=== PATIENT | female | born 1975 | race African-American/Black ===

== ENCOUNTER 2018-01-19 10:32 | Emergency (ER) | payer MEDICARE, OTHER ==
[~2018-01-19] VITALS: Ht 167.6 cm; Wt 141.5 kg
[~2018-01-19 10:32] MED LIST: AMLO5TAB4 PO; CLIN300C8 PO; CYCL10TA2 PO; DIAZ5TAB4 PO; DULO60CA6 PO; FLUT16SP2 NS; GABA-586 PO; HYDR25TA9 PO; LIDO700A4 TP; NAPR-514 PO; OXYC-328 PO; OXYC10TA45 PO; PROAIR HFA8.5 GM IH; TOPI50TA38 PO
--- NOTE | 2018-01-19 13:29 | RAD ---
EXAM: Lumbar spine, 3 views. HISTORY: Fall. Pain. COMPARISON: 11/11/2015. FINDINGS: 3 views of the lumbar spine are obtained. There is no listhesis. There is degenerative endplate remodeling with disc space narrowing and anterior osteophytosis at L2-L3. There is a chronic anterior superior endplate deformity or limbus vertebrae at L4. There is facet arthropathy primarily the lumbosacral junction. There are laminectomy changes at L2-L4. There are cholecystectomy clips. IMPRESSION: 1. No acute osseous finding. 2. Multilevel degenerative change, primarily at L2-L3. 3. 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 4. Laminectomy changes at L2-L4. Electronically signed by: Telma Hercules MD (01/19/2018 1:26 PM) [facility]
[2018-01-19 13:30] VITALS: BP 178/99
[2018-01-19] MEDS ORDERED: oxyCODONE/APAP 5/325 1 TAB TABLET PO ONE (13:30)
--- NOTE | 2018-01-19 13:50 | PHYS DOC ---
Past Medical History Past Medical History: Arthritis, Asthma, Gallstones, Hypertension, Sinusitis, Other Additional Past Medical Histor: Sleep apnea. Past Surgical History: Cholecystectomy, Other Additional Past Surgical Histo: Sinus surgery,L)ear surgery&"fixed adnoids." Alcohol Use: Occasionally Drug Use: None Adult General Chief Complaint Chief Complaint: MECHANICAL FALL HPI HPI Patient is a 42 year old FEMALE presented to the ER today for evaluation of lower back pain after she fell 4 days ago. Patient denied any other injury, no bowel or bladder incontinence, no fever, no headache, no neck pain, no abdominal pain. Review of Systems Review of Systems Constitutional: Denies fever or chills [] Eyes: Denies change in visual acuity, redness, or eye pain [] HENT: Denies nasal congestion or sore throat [] Respiratory: Denies cough or shortness of breath [] Cardiovascular: No additional information not addressed in HPI [] GI: Denies abdominal pain, nausea, vomiting, bloody stools or diarrhea [] : Denies dysuria or hematuria [] Musculoskeletal:Positive for lower back pain. Integument: Denies rash or skin lesions [] Neurologic: Denies headache, focal weakness or sensory changes [] Endocrine: Denies polyuria or polydipsia [] All other systems were reviewed and found to be within normal limits, except as documented in this note. Current Medications Current Medications Current Medications Medications (Trade) Dose Ordered Sig/Maciel Start Time Stop Time Status Last Admin Dose Admin Oxycodone/ Acetaminophen (Percocet 5/325) 1 tab 1X ONCE 01/19/18 13:30 01/19/18 13:31 DC 01/19/18 13:20 1 TAB Allergies Allergies Allergies Coded Allergies Type Severity Reaction Last Updated Verified clindamycin Allergy Intermediate Itching 11/11/15 Yes hydromorphone Allergy Intermediate Itching 01/19/18 Yes Physical Exam Physical Exam Constitutional: Well developed, well nourished, no acute distress, non-toxic appearance. [] HENT: Normocephalic, atraumatic, nose normal. [] Eyes: PERRLA, EOMI, conjunctiva normal, no discharge. [] Neck: Normal range of motion, no tenderness, supple, no stridor. [] Cardiovascular:Heart rate regular rhythm, no murmur [] Lungs & Thorax: Bilateral breath sounds clear to auscultation [] Abdomen: Bowel sounds normal, soft, no tenderness, no masses, no pulsatile masses. [] Skin: Warm, dry, no erythema, no rash. [] Back: No tenderness, no CVA tenderness. [] Extremities: No tenderness, no cyanosis, no clubbing, ROM intact, no edema. [] Neurologic: Alert and oriented X 3, normal motor function, normal sensory function, no focal deficits noted. [] Psychologic: Affect normal, judgement normal, mood normal. [] Current Patient Data Vital Signs Vital Signs Date Time Temp Pulse Resp B/P (MAP) Pulse Ox O2 Delivery O2 Flow Rate FiO2 01/19/18 13:30 84 94 01/19/18 11:35 98.5 20 171/96 (121) Room Air 98.5 EKG EKG [] Radiology/Procedures Radiology/Procedures [][facility] [address] [place] [address] IMAGING REPORT Signed PATIENT: ALICIA WARNER ACCOUNT: [id number] : 1975 LOCATION: ER AGE: 42 SEX: F EXAM STATUS: REG ER ORD. PHYSICIAN: AVA MAYORGA DO REASON: FELL 3 DAYS AGO, LOWER BACK PAIN PROCEDURE: LUMBAR SPINE 2-3V EXAM: Lumbar spine, 3 views. HISTORY: Fall. Pain. COMPARISON: 11/11/2015. FINDINGS: 3 views of the lumbar spine are obtained. There is no listhesis. There is degenerative endplate remodeling with disc space narrowing and anterior osteophytosis at L2-L3. There is a chronic anterior superior endplate deformity or limbus vertebrae at L4. There is facet arthropathy primarily the lumbosacral junction. There are laminectomy changes at L2-L4. There are cholecystectomy clips. IMPRESSION: 1. No acute osseous finding. 2. Multilevel degenerative change, primarily at L2-L3. 3. 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 4. Laminectomy changes at L2-L4. Electronically signed by: Telma Hercules MD (01/19/2018 1:26 PM) [place] [id number] DICTATED and SIGNED BY: TELMA HERCULES MD DATE: 01/19/18 1324 Course & Med Decision Making Course & Med Decision Making Pertinent Labs and Imaging studies reviewed. (See chart for details) [] Dragon Disclaimer Dragon Disclaimer This electronic medical record was generated, in whole or in part, using a voice recognition dictation system. Departure Departure Impression: Primary Impression: Low back pain Disposition: HOME, SELF-CARE Condition: STABLE Referrals: NO PCP (PCP) follow up with your doctor for further evaluation if you continue to have pain. Patient Instructions: Back Pain, Adult MAYORGAAVA DO Jan 19, 2018 13:50
== END 2018-01-19 14:05 | disposition home or self-care (01) ==
LOC: ER 10:32
DX: M54.5 Low back pain (principal); M19.90 Unspecified osteoarthritis, unspecified site; J45.909 Unspecified asthma, uncomplicated; I10 Essential (primary) hypertension; Z90.49 Acquired absence of other specified parts of digestive tract; Z88.1 Allergy status to other antibiotic agents; Z88.5 Allergy status to narcotic agent
CPT/HCPCS: 72100; 99284

== ENCOUNTER 2019-02-22 11:57 | Emergency (ER) | payer OTHER, MEDICAID ==
[~2019-02-22] VITALS: Ht 167.6 cm; Wt 147.9 kg
[~2019-02-22 11:57] MED LIST changes: +ALBU2.5V8 IH; -GABA-586 PO; +GABA300C18 PO; +HYDR-2145 PO; -HYDR25TA9 PO; -OXYC-328 PO; -OXYC10TA45 PO; +OXYC10TA46 PO; +OXYC1TAB22 PO; -PROAIR HFA8.5 GM IH
[2019-02-22 12:13] VITALS: BP 177/82
[2019-02-22] MEDS ORDERED: predniSONE 10 MG TABLET PO ONE (12:15)
[2019-02-22] MEDS ORDERED: IBUPROFEN 200 MG TABLET. PO ONE (12:15)
[2019-02-22] MEDS ORDERED: ALBUTEROL SULFATE 2.5 MG/3 ML NEBU. NEB ONE (12:15)
--- NOTE | 2019-02-22 12:20 | PHYS DOC ---
Past Medical History Past Medical History: Arthritis, Asthma, Gallstones, Hypertension, Sinusitis, Other Additional Past Medical Histor: Sleep apnea. (ROMERO BAER APRN) Past Surgical History: Cholecystectomy, Other Additional Past Surgical Histo: Sinus surgery,L)ear surgery&"fixed adnoids." (ROMERO BAER APRN) Alcohol Use: Occasionally Drug Use: None (ROMERO BAER APRN) Attending Signature I have participated in the care of this patient and I have reviewed and agree with all pertinent clinical information above including history, exam, and recommendations. (ROSEANNA MADSEN MD) Adult General Chief Complaint Chief Complaint: COUGH HPI HPI Patient is a 43 year old female who presents with cough with yellow-green mucus production, shortness of breath, sinus congestion, body aches, headache 1.5 weeks. Patient rates her overall pain a 7/10. (ROMERO BAER APRN) Review of Systems Review of Systems Constitutional: Denies fever or chills [] Eyes: Denies change in visual acuity, redness, or eye pain [] HENT: nasal congestion or sore throat [] Respiratory: cough or shortness of breath [] Cardiovascular: Left under the breast sharp pain and mid chest All other systems were reviewed and found to be within normal limits, except as documented in this note. (ROMERO BAER APRN) Current Medications Current Medications Current Medications Medications (Trade) Dose Ordered Sig/Maciel Start Time Stop Time Status Last Admin Dose Admin Albuterol Sulfate (Ventolin Neb Soln) 2.5 mg 1X ONCE 02/22/19 12:15 02/22/19 12:16 DC Ibuprofen (Motrin) 600 mg 1X ONCE 02/22/19 12:15 02/22/19 12:16 DC 02/22/19 12:29 600 MG Prednisone (Prednisone) 50 mg 1X ONCE 02/22/19 12:15 02/22/19 12:16 DC 02/22/19 12:29 50 MG (ROSEANNA MADSEN MD) Allergies Allergies Allergies Coded Allergies Type Severity Reaction Last Updated Verified clindamycin Allergy Intermediate Itching 11/11/15 Yes hydromorphone Allergy Intermediate Itching 01/19/18 Yes (ROSEANNA MADSEN MD) Physical Exam Physical Exam Constitutional: Well developed, well nourished, no acute distress, non-toxic appearance. [] HENT: Normocephalic, atraumatic, bilateral external ears normal, oropharynx moist, no oral exudates, nose normal. Post nasal drip. Tender sinuses. [] Eyes: PERRLA, EOMI, conjunctiva normal, no discharge. [] Neck: Normal range of motion, no tenderness, supple, no stridor. [] Cardiovascular:Heart rate regular rhythm, no murmur [] Lungs & Thorax: Bilateral breath sounds clear to auscultation [] Skin: Warm, dry, no erythema, no rash. [] Neurologic: Alert and oriented X 3, normal motor function, normal sensory function, no focal deficits noted. [] Psychologic: Affect normal, judgement normal, mood normal. [] (ROMERO BAER APRN) Current Patient Data Vital Signs Vital Signs Date Time Temp Pulse Resp B/P (MAP) Pulse Ox O2 Delivery O2 Flow Rate FiO2 02/22/19 12:26 96 Room Air 02/22/19 12:13 99.0 99 16 177/82 (113) 99.0 (ROSEANNA MADSEN MD) Lab Values Laboratory Tests Test 02/22/19 12:10 Influenza Type A Antigen Negative (NEGATIVE) Influenza Type B Antigen Negative (NEGATIVE) (ROSEANNA MADSEN MD) Lab Values Laboratory Tests Test 02/22/19 12:10 Influenza Type A Antigen Negative (NEGATIVE) Influenza Type B Antigen Negative (NEGATIVE) (ROMERO BAER APRN) EKG EKG [] (ROMERO BAER APRN) Radiology/Procedures Radiology/Procedures [] (ROMERO BAER APRN) Impressions: [facility] [address] [place], [place] [id number] IMAGING REPORT Signed PATIENT: ALICIA WARNER LACCOUNT: [id number] : 1975 LOCATION: ER AGE: 43 SEX: F EXAM STATUS: REG ER ORD. PHYSICIAN: ROMERO BAER APRN REASON: cough, soa X 2 weeks PROCEDURE: CHEST PA & LATERAL EXAM: CHEST 2 VIEWS. HISTORY: Cough, shortness of breath. COMPARISON: None 08/10/2015. FINDINGS: Frontal and lateral views of the chest are obtained. There are no confluent infiltrates. There is no pneumothorax or pleural effusion. The heart is not enlarged. Bulky right paratracheal calcified lymph nodes suggest old granulomatous disease. Cholecystectomy clips are noted. IMPRESSION: 1. No confluent infiltrates. Electronically signed by: Laya Hodge MD (02/22/2019 12:35 PM) [facility] DICTATED and SIGNED BY: SHERRIE HODGE MD DATE: 02/22/19 9079 (ROMERO BAER APRN) Course & Med Decision Making Course & Med Decision Making Lungs are clear in all lobes but diminished in lower lobes. Patient has a history of asthma. Patient states she's been using her inhaler more often than usual. Alert and oriented. Speaks in full clear sentences. Bilateral tympanics are pearly white. Throat pink, without exudates or swelling. Patient does have post nasal drip and maxillary and frontal sinus tenderness. PERRLA. Patient is a smoker. Patient states when she coughs she has left under the breast pain and mid chest pain that is sharp. Denies nausea, vomiting, diarrhea. Patient states she is drinking plenty of fluids. Patient states she has just been using cough drops and cough medications for her symptoms. Patient states she has been taking all of her medications as prescribed. Skin pink warm and dry. Patients temp is 99.0. Chest xray shows no acute findings. Patient to follow up with primary care provider. (ROMERO BAER APRN) Dragon Disclaimer Dragon Disclaimer This electronic medical record was generated, in whole or in part, using a voice recognition dictation system. (ROMERO BAER APRN) Departure Departure Impression: Primary Impression: Cough Additional Impressions: Asthma Nasal congestion Disposition: HOME, SELF-CARE Condition: STABLE Referrals: NO PCP (PCP) Patient Instructions: Asthma, Adult, Cough, Adult Additional Instructions: FOLLOW UP WITH PRIMARY CARE PROVIDER SOON POSSIBLE. TAKE MEDICATIONS PRESCRIBED. Scripts Albuterol Sulfate (Proair Hfa) 8.5 Gm Hfa.aer.ad 1 PUFF INH PRN Q6HRS PRN for SHORTNESS OF BREATH, #1 INHALER Prov: ROMERO BAER APRN 02/22/19 Azithromycin (AZITHROMYCIN TABLET) 250 Mg Tablet 1 PKG PO UD for 5 Days, #6 TAB 0 Refills 2 the first day followed by 1 for days 2-5 Prov: ROMERO BAER APRN 02/22/19 Methylprednisolone (MEDROL) 4 Mg Tab.ds.pk 1 PKG PO UD, #1 PKG Prov: ROMERO BAER APRN 02/22/19 Problem Qualifiers Additional Impressions: Asthma Asthma severity: mild Asthma persistence: intermittent Asthma complication type: uncomplicated Qualified Codes: J45.20 - Mild intermittent asthma, uncomplicated ROMERO BAER APRN Feb 22, 2019 12:20 ROSENANA MADSEN MD Feb 23, 2019 06:07
--- NOTE | 2019-02-22 12:38 | RAD ---
EXAM: CHEST 2 VIEWS. HISTORY: Cough, shortness of breath. COMPARISON: None 08/10/2015. FINDINGS: Frontal and lateral views of the chest are obtained. There are no confluent infiltrates. There is no pneumothorax or pleural effusion. The heart is not enlarged. Bulky right paratracheal calcified lymph nodes suggest old granulomatous disease. Cholecystectomy clips are noted. IMPRESSION: 1. No confluent infiltrates. Electronically signed by: Laya Hodge MD (02/22/2019 12:35 PM) [facility]
[2019-02-22 12:47] LABS: INFLUENZA A PATIENT NEGATIVE (NEGATIVE); INFLUENZA B PATIENT NEGATIVE (NEGATIVE)
[2019-02-22] MEDS ORDERED: METH4TAB2 PO (12:49)
[2019-02-22] MEDS ORDERED: AZIT250T6 PO (12:49)
[2019-02-22] MEDS ORDERED: ALBU2.5V8 INH (12:49)
== END 2019-02-22 13:20 | disposition home or self-care (01) ==
LOC: ER 11:57
DX: J45.20 Mild intermittent asthma, uncomplicated (principal); I10 Essential (primary) hypertension; F17.200 Nicotine dependence, unspecified, uncomplicated; Z88.1 Allergy status to other antibiotic agents; Z88.5 Allergy status to narcotic agent
CPT/HCPCS: 71046; 87804; 94640; 99285; J7512

== ENCOUNTER → 2020-01-26 | Outpatient (CLI) | payer OTHER, MEDICAID ==
[~2020-01-26] MED LIST changes: +ALBU2.5V8 INH; +AZIT250T6 PO; +METH4TAB2 PO
--- NOTE | 2020-01-26 15:42 | RAD ---
AP and Lateral Views of the Chest 01/26/2020 12:00 AM Indication: Reason: COPD / Spl. Instructions: / History: Comparison: Chest radiograph December 23, 2018 Findings: The pneumothorax, pleural effusion, or focal acute infiltrate is seen. Calcified right hilar and suprahilar lymph nodes again noted, similar to prior study. Heart size is within normal limits. No acute osseous changes are noted. IMPRESSION: No evidence of acute cardiopulmonary process or acute change from prior study Electronically signed by: Donta Willis MD (01/26/2020 3:39 PM) [id number]
== END | disposition home or self-care (01) ==
LOC: RAD 13:42
PROVIDERS: ATTEND Internal Medicine Pulmonary Disease
DX: J44.9 Chronic obstructive pulmonary disease, unspecified (principal)
CPT/HCPCS: 71046

== ENCOUNTER → 2020-02-09 | Outpatient (CLI) | payer OTHER, MEDICAID ==
[~2020-02-09] MED LIST changes: +ZOLPIDEM 5 MG TABLET. PO ONE
--- NOTE | 2020-02-10 09:10 | SLEEP ---
DATE OF STUDY: 02/09/2020 SLEEP STUDY ATTENDING PHYSICIAN: Dr. Ericka Dove. REFERRING PHYSICIAN: Dr. Danielle Jacinto. The patient is a 44-year-old who weighs 330 pounds with a BMI of 50. The patient's [place] score was 10. The patient underwent split night study performed at [facility]. During the night study, the patient spent 464 minutes in bed and slept for 398 minutes with a sleep efficiency of 86%. Sleep latency was 33 minutes with a REM latency of 152 minutes. Sleep architecture showed normal stage 1 and stage 2 sleep, normal N3 and normal REM sleep. EKG monitoring revealed a mean heart rate of 89 beats per minute, no sustained arrhythmias observed. No clinically significant PLM seen. Nocturnal oximetry study revealed a mean oxygen saturation of 98% with the lowest of 81%. A 6% percent of the time oxygen saturation remained between 80% and 89%. During the initial diagnostic portion of the study, the patient slept for 163 minutes. During that time, there were 8 obstructive apneas, no mixed or central apneas and 66 hypopneas. The patient's AHI was 27 per hour with a supine AHI of 8 per hour and a REM AHI of 106 per hour. The patient met the criteria for CPAP initiation. It was started at 5 cm water and titrated up to 7 cm water. At the final pressure, the patient slept for 158 minutes. The patient had supine as well as REM sleep. The patient's AHI was reduced to 2 per hour and oxygen saturations remained above 88% with one spot desaturation of 85%. IMPRESSION: 1. Moderate obstructive sleep apnea with worsening during REM sleep. Total AHI of 27 per hour with a supine AHI of 8 per hour and a REM AHI of 106 per hour. 2. Nocturnal hypoxia secondary to obstructive sleep apnea, but resolved with CPAP. 3. No clinically significant periodic limb movements. RECOMMENDATIONS: 1. CPAP at 7 cm water completely eliminated the patient's sleep apnea and should be used on a nightly basis. 2. Follow up in 4-6 weeks to assess compliance with CPAP and to document clinical improvement. 3. Weight loss is strongly advised. 4. Avoid [employer] depressants. 5. Caution regarding driving until symptoms of sleep apnea resolve with the use of CPAP. DRE U. KEITH, MD DR: EAN/roland JOB#: [id number] / [id number] DANIELLE Hoyt MD [facility]
== END ==
LOC: SLPLAB 19:23
PROVIDERS: ATTEND Internal Medicine Pulmonary Disease
DX: G47.33 Obstructive sleep apnea (adult) (pediatric) (principal); G47.34 Idiopathic sleep related nonobstructive alveolar hypoventilation
CPT/HCPCS: 95810